=== PATIENT | male | born 1970 | race Hispanic/Latino ===

== ENCOUNTER 2017-11-27 07:27 | Day surgery (SDC) | payer OTHER ==
[2017-11-27] MEDS ORDERED: NACL 0.9% 500 ML 500 ML IV SCH (08:00)
[2017-11-27] MEDS ORDERED: HEPARIN 10,000 UNITS/10 ML ONE (09:18)
[2017-11-27] MEDS ORDERED: HEPARIN/NS 5000 UNIT/500ML(CATH LAB) 1,000 ML IR ONE (09:18)
[2017-11-27] MEDS ORDERED: NITROGLYCERIN SYRINGE 3 ML ONE (09:19)
[2017-11-27] MEDS ORDERED: SUBLIMAZE ONE (09:19)
[2017-11-27] MEDS ORDERED: CALAN ONE (09:19)
[2017-11-27] MEDS ORDERED: XYLOCAINE 2% INFILTRATI ONE (09:19)
[2017-11-27] MEDS ORDERED: VERSED ONE (09:19)
--- NOTE | 2017-11-27 10:53 | Cardiac Catherization Report ---
CARDIAC CATHETERIZATION REFERRING PHYSICIAN: Mohit Arnold MD INDICATION: The patient is a pleasant 47-year-old gentleman referred by Dr. Arnold with recurrent chest pain, abnormal stress test. PROCEDURE IN DETAIL: The patient was brought to catheterization lab in a post-absorptive state, prepped and draped in sterile fashion. David's test in right hand was normal. A 2 mL of 2% lidocaine used to anesthetize the right wrist. A standard 6-Cambodian hydrophilic sheath used to cannulate the right radial artery via modified Seldinger technique. A standard 6-Cambodian hydrophilic sheath used to cannulate the right radial artery via modified Seldinger technique. All exchanges performed to exchange a J-tip guidewire. JL3.5 catheter used to engage the left main. No dampening or ventricularization. Cineangiography performed in all projections. JR4 catheter was used to cross the aortic valve under fluoroscopic guidance. Left ventriculography performed in 30 KLEIN and 30 PARAGUAYAN projections via hand injections, catheter flushed. Manual pullback performed with continuous pressure monitoring. Catheter used to engage the right coronary. No dampening or ventricularization. Cineangiography performed in all projections. JR4 catheter was used to cross the valve under fluoroscopic guidance. Left ventriculography performed in 30 KLEIN and 30 PARAGUAYAN projections via hand injections, catheter flushed. Manual pullback performed with continuous pressure monitoring. Cather used to right coronary. No dampening or ventricularization. Cineangiography performed in all projections. Next, due to recurrent chest pain, hypertension, a pigtail catheter was placed in the aortic root and root aortogram performed with a power injector in the PARAGUAYAN projection. Next, catheter removed from the body of wire, sheath removed. Manual pressure used to achieve hemostasis. DATA: The patient remained in normal sinus rhythm throughout the procedure. Aortic pressure is 120/80, LV pressure is 120, LVEDP of 20 mmHg. Left ventriculography revealed normal systolic performance with estimated ejection fraction 60-65%. No evidence of aortic stenosis. CORONARY ANATOMY: Right dominant system. Left main without significant disease, bifurcates in left anterior descending and left circumflex. Left anterior descending artery is a moderate sized vessel, courses anterior intergroove, wraps around the apex, no significant disease in the LAD or diagonal system. Left circumflex a moderate sized vessel, courses AV groove. No significant disease in left circumflex, OM branches. Right coronary is a moderate sized vessel, courses AV groove, distally bifurcates in the posterior descending and posterolateral branches. No discrete stenosis identified. Root aortography reveals normal contour, normal great vessel anatomy, no evidence of dissection, penetrating aortic ulcer or aortic insufficiency. I directly supervised administration of moderate sedation with fentanyl and Versed from 9:52 a.m. to 10:20 a.m. CONCLUSIONS: 1. No angiographic evidence of significant epicardial coronary disease in this right dominant system. 2. Normal left ventricular systolic performance, estimated ejection fraction of 55% -60% without evidence of aortic stenosis. 3. Normal LVEDP. 4. Root aortography is within normal limits. At this point, we will check a V/Q scan given chronic chest pain, risk factor modification. The patient has been smoking. Results of procedure have been explained at length to the patient and family. All questions and concerns were addressed. No immediate complications were noted. Follow up with Dr. Arnold. JOB# [id number] SBM/NTS
--- NOTE | 2017-11-27 12:09 | XRay Report ---
AP CHEST: HISTORY: Chest pain AP view of the chest demonstrates a normal mediastinal and cardiac contour with clear lungs and normal bony and soft tissue structures. IMPRESSION: No acute cardiopulmonary process identified.
--- NOTE | 2017-11-27 12:09 | Nuclear Medicine Report ---
LUNG SCAN, VENTILATION AND PERFUSION: History: Chest pain. Technique: 5mci of Tc99m MAA was infused for the perfusion images. 15mci XE 133 gas was inhaled for the ventilatory images. Correlation is made with a chest x-ray dated 11/27/17. Findings: Inhalation of Xenon gas demonstrates a normal distribution of the activity throughout both lungs. The wash out phases show no focal retention of activity. After injection of Technetium 99m macroaggregated albumin gamma camera imaging of the lungs in multiple projections demonstrates normal pulmonary contours with a homogeneous distribution of activity. No focal areas of perfusion deficiency are identified. IMPRESSION: Low probability for pulmonary embolus.
[2017-11-27 13:10] VITALS: BP 146/86
--- NOTE | 2017-11-28 14:15 | Short Stay Summary ---
Short Stay Documentation Date of service: 11/28/17 - History H&P: obtained from office - Allergies and Medications Current Medications: Allergies No Known Allergies Allergy (Unverified 11/27/17 07:28) Home Medications Medication Instructions Recorded Confirmed Last Taken Type Testosterone Cypionate (Nf) 1 ml IM QMONTH 11/27/17 11/27/17 11/19/17 History [Depo-Testosterone (Nf)] 1ml Triamter/Hctz 37.5-25 mg 1 tab PO DAILY 11/27/17 11/27/17 11/27/17 History [Maxzide-25] 1 amLODIPine [Norvasc] 10 mg PO DAILY 11/27/17 11/27/17 11/27/17 History 10mg - Brief post op/procedure progress note Date of procedure: 11/27/17 Pre-op diagnosis: abnormal stress test, chest pain Post-op diagnosis: same Procedure: LHC - see cath report Anesthesia: local Estimated blood loss: none Condition: stable - Disposition Condition at discharge: Good Disposition: DC-01 TO HOME OR SELFCARE - Discharge Diagnoses (1) Chest pain Status: Chronic (2) Abnormal stress test Status: Chronic (3) Tobacco use Status: Chronic Short Stay Discharge Plan Activity: advance as tolerated Wound: open to air, keep clean and dry Follow up with: SHINE NICOLE MD [Primary Care Provider] - 7 Days Forms: CardCath PCI D/C Instructions
== END 2017-11-27 13:36 | disposition home or self-care (01) ==
LOC: CATHLABREC 07:27
PROVIDERS: ATTEND Internal Medicine
DX: R07.89 Other chest pain (principal); R94.39 Abnormal result of other cardiovascular function study; I10 Essential (primary) hypertension; E66.01 Morbid (severe) obesity due to excess calories
CPT/HCPCS: 71045; 78582; 93005; 93010; 93458; 99152; A9540; A9558; C1894; J1644; J2250; J3010; J7040; Q9967

== ENCOUNTER 2018-04-03 06:29 | Day surgery (SDC) | payer OTHER ==
[2018-04-03] MEDS ORDERED: WATER FOR IRRIG STERILE IR ONE (07:25)
[2018-04-03] MEDS ORDERED: XYLOCAINE MPF 2% ONE (08:00)
[2018-04-03] MEDS ORDERED: NACL 0.9% 1000 ML 1,000 ML IV SCH (08:00)
--- NOTE | 2018-04-03 08:30 | Anesthesia Day of Surgery ---
Anesthesia Day of Surgery - Day of Surgery Patient Examined: Yes Patient H&P Reviewed: Yes Patient is NPO: Yes
--- NOTE | 2018-04-03 08:30 | Anesthesia Consultation ---
Anesthesia Consult and Med Hx Date of service: 04/03/18 - Airway Anesthetic Teeth Evaluation: Good ROM Head & Neck: Adequate Mental/Hyoid Distance: Adequate Mallampati Class: Class III Intubation Access Assessment: Possibly Difficult - Pre-Operative Health Status ASA Pre-Surgery Classification: ASA3 - Pulmonary Hx Smoking: Yes SOB: Yes Hx Sleep Apnea: Yes (undiagnosed) - Cardiovascular System Hx Hypertension: Yes - Other Systems Hx Alcohol Use: No Hx Cancer: No Hx Obesity: Yes (BMI 42.4)
[2018-04-03] MEDS ORDERED: DIPRIVAN 10 MG/ML IV ONE ×2 (09:03)
--- NOTE | 2018-04-03 09:39 | Short Stay Summary ---
Short Stay Documentation - Allergies and Medications Current Medications: Allergies No Known Allergies Allergy (Verified 04/03/18 08:13) Home Medications Medication Instructions Recorded Confirmed Last Taken Type Atenolol 1 tab PO DAILY 04/03/18 04/03/18 04/03/18 History Active Medications Sodium Chloride (Nacl 0.9% 1000 Ml) 1,000 mls @ 50 mls/hr IV DIRECT OTILIA Last Admin: 04/03/18 08:20 Dose: 50 mls/hr - Brief post op/procedure progress note Date of procedure: 04/03/18 Pre-op diagnosis: Hematochezia Post-op diagnosis: same (1. Hemorrhoids 2. Poor prep 3. Normal terminal ileum) Procedure: Colonoscopy Anesthesia: MAC Findings: as above Surgeon: FINN KINCAID Estimated blood loss: none Pathology: none Condition: stable - Disposition Condition at discharge: Stable Disposition: DC-01 TO HOME OR SELFCARE Short Stay Discharge Plan Activity: no restrictions Weight Bearing Status: Full Weight Bearing Diet: regular Follow up with: SHINE NICOLE MD [Primary Care Provider] - 7 Days
[2018-04-03 10:15] VITALS: BP 111/73
== END 2018-04-03 06:30 | disposition home or self-care (01) ==
LOC: GIO 06:29
PROVIDERS: ATTEND Internal Medicine Gastroenterology
DX: K64.0 First degree hemorrhoids (principal); K59.09 Other constipation; K92.1 Melena; K58.9 Irritable bowel syndrome, unspecified; K30 Functional dyspepsia; K21.9 Gastro-esophageal reflux disease without esophagitis; I10 Essential (primary) hypertension; G47.30 Sleep apnea, unspecified; F17.210 Nicotine dependence, cigarettes, uncomplicated; E66.01 Morbid (severe) obesity due to excess calories; Z68.41 Body mass index [BMI] 40.0-44.9, adult; Z80.8 Family history of malignant neoplasm of other organs or systems; Z83.6 Family history of other diseases of the respiratory system; Z83.49 Family history of other endocrine, nutritional and metabolic diseases; Z84.1 Family history of disorders of kidney and ureter; Z83.3 Family history of diabetes mellitus; Z82.49 Family history of ischemic heart disease and other diseases of the circulatory system; Z79.899 Other long term (current) drug therapy
CPT/HCPCS: 45378; J2704; J7030